=== PATIENT | male | born 1965 | race Two or more races ===

== ENCOUNTER 2021-03-07 18:11 | Inpatient (IN) | payer OTHER ==
[~2021-03-07] VITALS: Ht 175.3 cm; Wt 85.7 kg
[2021-03-07] MEDS ORDERED: DOCU100C36 PO (19:07)
[2021-03-07] MEDS ORDERED: MV-M1TAB18 PO (19:07)
[2021-03-07] MEDS ORDERED: MIRT45TA83 PO (19:07)
[2021-03-07] MEDS ORDERED: MULT-31 PO (19:07)
[2021-03-07] MEDS ORDERED: FAMO40TA7 PO (19:07)
[2021-03-07] MEDS ORDERED: BICT1TAB PO (19:07)
[2021-03-07] MEDS ORDERED: OMEP20CA15 PO (19:07)
[2021-03-07] MEDS ORDERED: RISP0.5T65 PO (19:07)
[2021-03-07] MEDS ORDERED: POLY17PO4 PO (19:07)
[2021-03-07] MEDS ORDERED: HYDR25TA4 PO (19:07)
[2021-03-07] MEDS ORDERED: ASPI81TA31 PO (19:07)
[2021-03-07] MEDS ORDERED: BUPR-319 PO (19:07)
[2021-03-07] MEDS ORDERED: BACL10TA PO (19:07)
[2021-03-07] MEDS ORDERED: ATOR40TA PO (19:07)
[2021-03-07] MEDS ORDERED: PREG200C PO (19:07)
[2021-03-07] MEDS ORDERED: FLUC200T8 PO (19:07)
[2021-03-07] MEDS ORDERED: MULT-594 PO (19:07)
[2021-03-07] MEDS ORDERED: MELO-107 PO (19:07)
[2021-03-07] MEDS ORDERED: PANT40TA49 PO (19:07)
[2021-03-07] MEDS ORDERED: IV NORMAL SALINE 1000 ML BAG IV ONE (19:30)
[2021-03-07] MEDS ORDERED: levETIRAcetam IV 1,500 MG in IV DEXTROSE 5% 100 ML IV ONE (19:30)
--- NOTE | 2021-03-07 19:30 | NUR ---
Recieved report from JEREMY Blanco. Pt. is a&ox4, no vision changes, no changes in speech, no headache. Pt. is resting, stated he felt dizzy and tired but otherwise no symptoms. Pts. is at the bedside. Vss. Will continue to monitor.
[2021-03-07] MEDS ORDERED: PIPERACILLIN SODIUM/TAZOBACTAM 3.375 G in IV DEXTROSE 5% 50 ML IV ONE (20:15)
[2021-03-07 20:39] LABS: HEMATOCRIT 37.8 % (36.7-47.1); MEAN CORPUSCULAR HEMOGLOBIN 25.9 uug (23.8-33.4); MEAN CORPUSCULAR VOLUME 78.3 fL (73.0-96.2); PLATELET COUNT (AUTO) 268 K/uL (152-348)
[2021-03-07 20:53] LABS: CREATININE 1.3 mg/dL (0.6-1.3)
[2021-03-07 20:57] LABS: ABG BASE EXCESS 1.5 mmol/L; ABG HCO3 24.4 mmol/L; ABG PCO2 33.1 mmHg (35.0-45.0); ABG PH 7.485 (7.350-7.450); ABG PO2 73.8 mmHg (75.0-100.0); ABG SITE RIGHT RADIAL; ABG TOTAL HEMOGLOBIN 12.8 G/dL (13.5-18.0); MetHb 0.3 % (0.0-1.5); O2Hb 94.4 % (94.0-97.0); VENT MODE Nasal Cannula
[2021-03-07 20:59] LABS: BILIRUBIN,DIRECT 0.1 mg/dL (0.0-0.2); BILIRUBIN,TOTAL 0.4 mg/dL (0.2-1.0); TOTAL PROTEIN, SERUM 7.5 g/dL (6.4-8.2)
[2021-03-07 21:01] LABS: POTASSIUM 2.7 mmol/L (3.5-5.1)
[2021-03-07] MEDS ORDERED: levETIRAcetam 500 MG/5 ML VIAL IV ONE (21:01)
[2021-03-07] MEDS ORDERED: PIPERACILLIN/TAZOBACTAM/D5W 50 ML IV ONE (21:01)
[2021-03-07 21:04] LABS: PHOSPHOROUS 2.4 mg/dL (2.5-4.9)
[2021-03-07 21:06] LABS: THYROID STIMULATING HORMONE 1.613 mIU/mL (0.358-3.740)
[2021-03-07] MEDS ORDERED: POTASSIUM CHLORIDE 20 MEQ POWDER PACKET PO STA (22:01)
[2021-03-07] MEDS ORDERED: DOXYCYCLINE HYCLATE IV 200 MG in IV DEXTROSE 5% 250 ML IV ONE (22:15)
[2021-03-07 22:47] LABS: *BILIRUBIN,URIN NEGATIVE (NEGATIVE); *BLOOD, URINE NEGATIVE (NEGATIVE); *CLARITY,URINE CLEAR (CLEAR); *COLOR,URINE YELLOW (YELLOW); *KETONES,URINE NEGATIVE (NEGATIVE); *UROBILINOGEN,URINE 0.2 E.U./dl (NORMAL); LEUKOCYTE ESTERASE ,URINE NEGATIVE (NEGATIVE); NITRITE, URINE NEGATIVE (NEGATIVE); UGLUCOSE NEGATIVE (NEGATIVE)
[2021-03-07] MEDS ORDERED: POTASSIUM CHLORIDE 20 MEQ POWDER PACKET ONE (22:48)
[2021-03-07] MEDS ORDERED: DOXYCYCLINE HYCLATE 100 MG INJ IV ONE (22:49)
[2021-03-07] MEDS ORDERED: POTASSIUM CHLORIDE 50 ML ONE (22:49)
[2021-03-07] MEDS: POTASSIUM CHLORIDE 50 ML IV SCH (22:54)
[2021-03-08] MEDS ORDERED: BACLOFEN 10 MG TABLET PO PRN (00:15)
[2021-03-08] MEDS: POTASSIUM CHLORIDE 50 ML IV SCH ×3 (00:15→02:10)
--- NOTE | 2021-03-08 00:51 | NUR ---
Gave report to JEREMY Sarmiento. The potassium will finish infusing on floor, endorsed to Guillermina.
[2021-03-08] MEDS ORDERED: POTASSIUM CHLORIDE 150 ML ONE (01:26)
[2021-03-08 04:00] VITALS: BP 123/77
[2021-03-08] MEDS: IPRATROPIUM BROMIDE 0.5 MG/2.5 ML NEBU NEB SCH ×5 (07:35→19:30)
[2021-03-08] MEDS: ALBUTEROL SULFATE 2.5 MG/3 ML NEBU NEB SCH ×7 (07:35→23:09)
[2021-03-08] MEDS ORDERED: ACETAMINOPHEN 325 MG TABLET PO PRN (07:45)
[2021-03-08] MEDS ORDERED: MAGNESIUM HYDROXIDE 30 ML LIQUID UDC PO PRN (07:45)
[2021-03-08] MEDS ORDERED: ONDANSETRON 4 MG/2 ML VIAL IV PRN (07:45)
[2021-03-08] MEDS ORDERED: Z GUARD REMEDY PASTE 57 GM TUBE TOP PRN (07:45)
[2021-03-08] MEDS ORDERED: DEXAMETHASONE SOD PHOSPHATE 10 MG INJ IV ONE (07:45)
[2021-03-08] MEDS ORDERED: ZOLPIDEM 5 MG TABLET PO PRN (07:45)
--- NOTE | 2021-03-08 08:23 | NUR ---
RECEIVED REPORT FROM ER NURSE PT IS ALERT AND ORIENTED X4 BUT HONDURAN SPEAKING PT CAME WITH DX OF SEIZURES PT ALSO HAS A HX OF DEPRESSION, ANXIETY, HIV POSITIVE, NO SIGNS OF DISTRESS NOTED. PT 3 K RIDER TO BE COMPLETED POTASSIUM IS 2.7 HUNG THE LAST BAG OF POTASSIUM. NO SIGNS OF RESPIRATORY DISTRESS NOTED DENIES PAIN FROM THE SIGHT. PT BED IS PADDED SEIZURE PRECAUTION. WILL CONTINUE TO MONITOR.
[2021-03-08] MEDS: buPROPion XL 150 MG TAB.SR.24H PO SCH (08:27)
[2021-03-08] MEDS: PREGABALIN 100 MG CAPSULE PO SCH (08:27)
[2021-03-08] MEDS: ASPIRIN 81 MG TAB.CHEW PO SCH (08:27)
[2021-03-08] MEDS: levETIRAcetam 500 MG TABLET PO SCH ×2 (08:27→20:15)
[2021-03-08] MEDS: MELOXICAM 7.5 MG TABLET PO SCH (08:27)
[2021-03-08] MEDS: DOXYCYCLINE HYCLATE IV 100 MG in IV DEXTROSE 5% 100 ML IV SCH ×2 (08:30→20:12)
[2021-03-08] MEDS: CEFTRIAXONE 1 G in IV DEXTROSE 5% 50 ML IV SCH (08:30)
[2021-03-08] MEDS ORDERED: FLUCONAZOLE 200 MG TABLET PO SCH ×2 (09:00)
[2021-03-08 11:35] VITALS: BP 104/69
[2021-03-08 15:19] VITALS: BP 90/59
[2021-03-08 16:31] LABS: CREATININE 1.5 mg/dL (0.6-1.3); POTASSIUM 3.4 mmol/L (3.5-5.1)
[2021-03-08] MEDS: risperiDONE 0.5 MG TABLET PO SCH (17:05)
[2021-03-08] MEDS ORDERED: ATORVASTATIN 40 MG TABLET PO SCH (18:00)
[2021-03-08] MEDS: IV LACTATED RINGERS SOLUTION 1,000 ML IV PRN (19:57)
[2021-03-08 20:00] VITALS: BP 105/65
[2021-03-08] MEDS: MIRTAZAPINE 15 MG TABLET PO SCH (20:15)
[2021-03-08] MEDS: ATORVASTATIN 40 MG TABLET PO SCH (20:15)
[2021-03-09 04:00] VITALS: BP 107/74
[2021-03-09] MEDS ORDERED: IPRATROPIUM BROMIDE 12.9 GM INHALER INH SCH (07:05)
[2021-03-09] MEDS ORDERED: ALBUTEROL SULFATE 1.25 MG/3 ML NEBU NEB SCH (07:05)
[2021-03-09 07:57] LABS: HEMATOCRIT 37.4 % (36.7-47.1); MEAN CORPUSCULAR HEMOGLOBIN 25.3 uug (23.8-33.4); MEAN CORPUSCULAR VOLUME 79.1 fL (73.0-96.2); PLATELET COUNT (AUTO) 252 K/uL (152-348)
[2021-03-09 08:11] LABS: CREATININE 1.2 mg/dL (0.6-1.3); MAGNESIUM 2.2 mg/dL (1.8-2.4); PHOSPHOROUS 3.4 mg/dL (2.5-4.9); POTASSIUM 3.4 mmol/L (3.5-5.1)
[2021-03-09] MEDS: ALBUTEROL SULFATE 1.25 MG/3 ML NEBU NEB SCH ×4 (08:15→19:23)
[2021-03-09] MEDS: IPRATROPIUM BROMIDE 0.5 MG/2.5 ML NEBU NEB SCH ×4 (08:15→19:23)
[2021-03-09] MEDS: MELOXICAM 7.5 MG TABLET PO SCH (08:29)
[2021-03-09] MEDS: ASPIRIN 81 MG TAB.CHEW PO SCH (08:29)
[2021-03-09] MEDS: levETIRAcetam 500 MG TABLET PO SCH ×2 (08:29→20:41)
[2021-03-09] MEDS: PREGABALIN 100 MG CAPSULE PO SCH (08:31)
[2021-03-09] MEDS ORDERED: POTASSIUM CHLORIDE 20 MEQ TAB.PRT.SR PO ONE (10:00)
[2021-03-09] MEDS: CEFTRIAXONE 1 G in IV DEXTROSE 5% 50 ML IV SCH (10:32)
[2021-03-09] MEDS: DOXYCYCLINE HYCLATE IV 100 MG in IV DEXTROSE 5% 100 ML IV SCH ×2 (10:32→20:41)
[2021-03-09] MEDS: buPROPion XL 150 MG TAB.SR.24H PO SCH (10:32)
--- NOTE | 2021-03-09 12:00 | NUR ---
TRANSPORTED TO [facility] FOR MRI OF THE HEAD ORDER. EEG DONE WELL THIS AM
[2021-03-09] MEDS: IV LACTATED RINGERS SOLUTION 1,000 ML IV PRN (15:22)
[2021-03-09 16:00] VITALS: BP 107/75
[2021-03-09] MEDS: risperiDONE 0.5 MG TABLET PO SCH (17:10)
[2021-03-09 20:25] VITALS: BP 108/60
[2021-03-09] MEDS: MIRTAZAPINE 15 MG TABLET PO SCH (20:41)
[2021-03-09] MEDS: ATORVASTATIN 40 MG TABLET PO SCH (20:41)
[2021-03-10 00:10] VITALS: BP 102/57
[2021-03-10 04:25] VITALS: BP 104/56
--- NOTE | 2021-03-10 05:16 | NUR ---
Pt slept throughout the night. Denies pain or SOB. Titrated to 2L, tolerating well. IV site intact. No other issues or concerns at this time, will endorse to day shift.
[2021-03-10] MEDS: IV LACTATED RINGERS SOLUTION 1,000 ML IV PRN ×2 (05:49→20:01)
[2021-03-10 06:23] LABS: HEMATOCRIT 39.4 % (36.7-47.1); MEAN CORPUSCULAR HEMOGLOBIN 25.6 uug (23.8-33.4); PLATELET COUNT (AUTO) 252 K/uL (152-348)
[2021-03-10 06:59] LABS: BILIRUBIN,TOTAL 0.3 mg/dL (0.2-1.0); CREATININE 1.1 mg/dL (0.6-1.3); PHOSPHOROUS 3.3 mg/dL (2.5-4.9); POTASSIUM 3.6 mmol/L (3.5-5.1)
--- NOTE | 2021-03-10 07:20 | NUR ---
per protocol tx not giving due to PUI RN Addendum: 03/10/21 at 1458 by HONEY DURON RT per protocol tx not giving due to PUI. JEREMY aware
[2021-03-10] MEDS: ALBUTEROL SULFATE 1.25 MG/3 ML NEBU NEB SCH ×4 (07:35→19:03)
[2021-03-10] MEDS: IPRATROPIUM BROMIDE 0.5 MG/2.5 ML NEBU NEB SCH ×4 (07:35→19:03)
[2021-03-10] MEDS: CEFTRIAXONE 1 G in IV DEXTROSE 5% 50 ML IV SCH (09:05)
[2021-03-10] MEDS: ASPIRIN 81 MG TAB.CHEW PO SCH (09:05)
[2021-03-10] MEDS: MELOXICAM 7.5 MG TABLET PO SCH (09:06)
[2021-03-10] MEDS: levETIRAcetam 500 MG TABLET PO SCH ×2 (09:06→20:00)
[2021-03-10] MEDS: buPROPion XL 150 MG TAB.SR.24H PO SCH (09:06)
[2021-03-10] MEDS: PREGABALIN 100 MG CAPSULE PO SCH (09:06)
[2021-03-10] MEDS: DOXYCYCLINE HYCLATE IV 100 MG in IV DEXTROSE 5% 100 ML IV SCH ×2 (09:47→20:02)
[2021-03-10 12:00] VITALS: BP 112/60
[2021-03-10] MEDS ORDERED: ALBUTEROL SULFATE 8 GM HFA.AER.AD IH PRN ×2 (12:45→15:30)
[2021-03-10] MEDS ORDERED: ALBUTEROL SULFATE 2.5 MG/3 ML NEBU NEB PRN (13:30)
[2021-03-10 16:00] VITALS: BP 116/87
[2021-03-10] MEDS ORDERED: GADOTERATE MEGLUMINE 10 MMOL/20 ML VIAL IV ONE (16:22)
[2021-03-10] MEDS: risperiDONE 0.5 MG TABLET PO SCH (17:07)
[2021-03-10] MEDS: ATORVASTATIN 40 MG TABLET PO SCH (20:00)
[2021-03-10] MEDS: MIRTAZAPINE 15 MG TABLET PO SCH (20:00)
[2021-03-10 20:25] VITALS: BP 127/85
[2021-03-11 00:10] VITALS: BP 109/82
[2021-03-11 04:25] VITALS: BP 118/80
[2021-03-11 06:39] LABS: HEMATOCRIT 37.4 % (36.7-47.1); MEAN CORPUSCULAR HEMOGLOBIN 25.1 uug (23.8-33.4); MEAN CORPUSCULAR VOLUME 79.7 fL (73.0-96.2); PLATELET COUNT (AUTO) 228 K/uL (152-348)
[2021-03-11 06:44] LABS: CREATININE 1.1 mg/dL (0.6-1.3); MAGNESIUM 1.9 mg/dL (1.8-2.4); PHOSPHOROUS 3.4 mg/dL (2.5-4.9); POTASSIUM 3.6 mmol/L (3.5-5.1)
--- NOTE | 2021-03-11 07:30 | NUR ---
Received patient resting in bed. AOx3-4. No signs of acute distress. with right wrist IV access, patent and intact. Call light within reach. Will continue to monitor.
[2021-03-11] MEDS: ALBUTEROL SULFATE 1.25 MG/3 ML NEBU NEB SCH ×3 (07:35→15:30)
[2021-03-11] MEDS: IPRATROPIUM BROMIDE 0.5 MG/2.5 ML NEBU NEB SCH ×3 (07:35→15:30)
[2021-03-11] MEDS: CEFTRIAXONE 1 G in IV DEXTROSE 5% 50 ML IV SCH (08:11)
[2021-03-11] MEDS: MELOXICAM 7.5 MG TABLET PO SCH (08:53)
[2021-03-11] MEDS: ASPIRIN 81 MG TAB.CHEW PO SCH (08:53)
[2021-03-11] MEDS: buPROPion XL 150 MG TAB.SR.24H PO SCH (08:53)
[2021-03-11] MEDS: PREGABALIN 100 MG CAPSULE PO SCH (08:53)
[2021-03-11] MEDS: levETIRAcetam 500 MG TABLET PO SCH (08:53)
[2021-03-11] MEDS: DOXYCYCLINE HYCLATE IV 100 MG in IV DEXTROSE 5% 100 ML IV SCH (09:31)
[2021-03-11 11:48] VITALS: BP 100/74
[2021-03-11] MEDS ORDERED: AMOX-427 PO (13:23)
[2021-03-11] MEDS ORDERED: LEVE500T9 PO (13:23)
--- NOTE | 2021-03-11 14:20 | NUR ---
Discharged patient to home. Patient AOx3-4. On room air, saturating 98-100%. No signs of acute distress. Patient denies pain/ discomfort at this time. Discharge instructions given and discharge documents signed. Belongings accounted for and belongings list signed. IV access removed. ID armband removed. Patient wheeled to hospital lobby. Patient left hospital by private car.
[2021-03-14 15:31] LABS: M-SPIKE Not Observed
[2021-03-14 15:32] LABS: ALBUMIN 3.6; ALPHA-1-GLOBULIN 0.1; ALPHA-2-GLOBULIN 0.6
[2021-03-14 15:33] LABS: A/G RATIO 1.3; BETA GLOBULIN 0.8; GAMMA GLOBULIN 1.2; GLOBULIN, TOTAL 2.8
== END 2021-03-11 14:15 | disposition home or self-care (01) | DRG 193 ==
LOC: ER 18:11 → EDBD 18:11 → MEDSURG3 23:55 → TELE3 03-09 02:13
PROVIDERS: ADMIT Student in an Organized Health Care Education/Training Program; ATTEND Student in an Organized Health Care Education/Training Program
DX: J15.9 Unspecified bacterial pneumonia (principal); N17.0 Acute kidney failure with tubular necrosis; J96.01 Acute respiratory failure with hypoxia; E87.1 Hypo-osmolality and hyponatremia; R47.01 Aphasia; E87.6 Hypokalemia; G40.909 Epilepsy, unspecified, not intractable, without status epilepticus; I69.398 Other sequelae of cerebral infarction; G93.89 Other specified disorders of brain; E11.9 Type 2 diabetes mellitus without complications; E78.5 Hyperlipidemia, unspecified; F32.9 Major depressive disorder, single episode, unspecified; F41.9 Anxiety disorder, unspecified; I10 Essential (primary) hypertension; K21.9 Gastro-esophageal reflux disease without esophagitis; K58.9 Irritable bowel syndrome, unspecified; Z79.82 Long term (current) use of aspirin; M62.838 Other muscle spasm; Z20.822 Contact with and (suspected) exposure to COVID-19
CPT/HCPCS: 36415; 36600; 70030-TC; 70450; 70553; 71045; 83605; 83735; 83970; 84100; 84155; 84165; 84443; 85025; 85730; 87040; 93005; 94640; 94664; 95819; A9575; G0378; J0696; J1953; J2543; J3480; J3490; J3535; J3590; J7030; J7060; J7120; U0003